=== PATIENT | female | born 1995 | race Caucasian/White ===

== ENCOUNTER 2023-08-01 13:20 | Inpatient (IN) | payer OTHER ==
[2023-08-01 15:03] LABS: BASO % 0.1 % (0-2.0); EOS % 0.1 % (0-4.5); HEMATOCRIT 38.6 % (32.4-45.2); HEMOGLOBIN 12.8 GM/dL (10.7-15.3); LYMPH % 19.3 % (8-40); MCH 28.6 pg (25.7-33.7); MCHC 33.2 g/dl (32.0-36.0); MEAN CELL VOLUME 86.2 fl (80-96); MEAN PLT VOLUME 9.3 fl (7.5-11.1); MONO % 6.8 % (3.8-10.2); NEUT % 73.7 % (42.8-82.8); PLATELET COUNT 184 10^3/uL (134-434); RBC 4.48 M/mm3 (3.60-5.2); RDW 17.7 % (11.6-15.6); WHITE BLOOD COUNT 6.8 K/mm3 (4.0-10.0)
[2023-08-01 15:05] LABS: RETICULOCYTES 2.23 % (0.5-1.5)
[2023-08-01 15:17] LABS: INR 1.01 (0.83-1.09); PROTHROMBIN TIME (PATIENT) 11.7 SEC (9.7-13.0)
[2023-08-01 15:20] LABS: ACTIVATED PTT 23.4 SECONDS (25.2-36.5)
[2023-08-01 15:20] LABS: POTASSIUM 4.2 mmol/L (3.5-5.1)
[2023-08-01 15:21] LABS: CALCIUM 8.9 mg/dL (8.5-10.1)
[2023-08-01 15:23] LABS: BLOOD UREA NITROGEN 5.1 mg/dL (7-18); GAMMA GLUTAMYL TRANSPEPTIDASE 6 U/L (5-85)
[2023-08-01 15:25] LABS: CREATININE 0.6 mg/dL (0.55-1.3)
[2023-08-01 15:26] LABS: SGOT/AST 18 U/L (15-37); SGPT/ALT 22 U/L (13-61)
[2023-08-01] MEDS ORDERED: DINOPROSTONE 10 MG VAGINAL SUPPOSITORY VG ONE (16:30)
[2023-08-01 17:31] VITALS: BMI 30.2
[2023-08-01] MEDS: ELECTROLYTE-148 SOLN 1,000 ML IV SCH (18:15)
[2023-08-01 20:33] LABS: HIV INTERPRETATION NEGATIVE (NEGATIVE)
[2023-08-01] MEDS ORDERED: ZOLPIDEM TARTRATE 5 MG TABLET PO ONE (22:00)
[2023-08-01] MEDS ORDERED: ZOLPIDEM TARTRATE 5 MG TABLET ONE (23:31)
[2023-08-02] MEDS: ELECTROLYTE-148 SOLN 1,000 ML IV SCH ×3 (01:00→17:45)
[2023-08-02] MEDS ORDERED: BUTORPHANOL TARTRATE 2 MG/ML VIAL IVPB ONE (06:00)
[2023-08-02] MEDS ORDERED: PROMETHAZINE HCL 25 MG/1 ML VIAL IVPB ONE (06:00)
[2023-08-02] MEDS ORDERED: BUTORPHANOL TARTRATE 2 MG/ML VIAL ONE (06:04)
[2023-08-02] MEDS ORDERED: PROMETHAZINE HCL 25 MG/1 ML VIAL ONE (06:05)
[2023-08-02] MEDS ORDERED: OXYTOCIN 30 UNITS in 0.9% NS 30 UNIT/500 ML INFUS.BAG IVPB SCH (09:15)
[2023-08-02] MEDS ORDERED: FENTANYL/BUPIVACAINE/NS/PF - PCEA - 50 ML DISP.SYRIN EP ONE ×2 (11:01→16:26)
[2023-08-02] MEDS ORDERED: OXYTOCIN 30 UNITS in 0.9% NS 30 UNIT/500 ML INFUS.BAG IVPB ONE (11:49)
[2023-08-02] MEDS ORDERED: NALOXONE HCL 0.4 MG/ML VIAL IVPUSH PRN (13:01)
[2023-08-02] MEDS ORDERED: FENTANYL/BUPIVACAINE/NS/PF - PCEA - 50 ML DISP.SYRIN EP SCH ×2 (13:15)
[2023-08-02] MEDS ORDERED: ACETAMINOPHEN INJECTION 100 ML IVPB ONE (17:06)
[2023-08-02] MEDS ORDERED: ACETAMINOPHEN 1000 MG/100 ML BAG IVPB ONE (17:15)
[2023-08-02] MEDS ORDERED: OXYTOCIN 20 UNITS in 0.9% NS 20 UNIT/1,000 ML INFUS.BAG IV ONE (18:31)
[2023-08-02] MEDS ORDERED: LIDOCAINE HCL 1% PRESERVATIVE FREE - 30ML VIAL ONE (18:31)
[2023-08-02] MEDS ORDERED: ACETAMINOPHEN 325 MG TABLET (FP) ONE (21:40)
[2023-08-02] MEDS ORDERED: BENZOCAINE 20% 57 GM BOTTLE TP PRN (21:44)
[2023-08-02] MEDS ORDERED: WITCH HAZEL 50% (TUCKS) 40 PAD/JAR PAD TP PRN (21:44)
[2023-08-02] MEDS ORDERED: BENZOCAINE 28 GM HEMORRHOIDAL OINTMENT TP PRN (21:44)
[2023-08-02] MEDS ORDERED: oxyCODONE HCL 5 MG TABLET PO PRN (21:44)
[2023-08-02] MEDS ORDERED: BISACODYL 10 MG SUPP.RECT RC PRN (21:44)
[2023-08-02] MEDS: ACETAMINOPHEN 325 MG TABLET (FP) PO SCH (21:45)
[2023-08-02] MEDS ORDERED: OXYTOCIN 20 UNITS in 0.9% NS 20 UNIT/1,000 ML INFUS.BAG IV SCH (21:45)
[2023-08-02 22:18] LABS: CORD BASE EXCESS -2.6 mmol/L (0-2); CORD HCO3 23.5 mmHg (20-29); CORD PCO2 44.6 mmHg (30-78); CORD pH 7.339 (7.14-7.44)
[2023-08-02 22:23] LABS: CORD BASE EXCESS -0.2 mmol/L (0-2); CORD pH 7.333 (7.14-7.44)
[2023-08-03] MEDS: IBUPROFEN 600 MG TABLET (FP) PO SCH ×5 (01:32→21:25)
[2023-08-03] MEDS: SENNOSIDES/DOCUSATE COMBO (SENNA PLUS) TABLET (UD) PO SCH ×2 (01:32→21:26)
[2023-08-03 01:44] VITALS: RESP 18
[2023-08-03] MEDS: ACETAMINOPHEN 325 MG TABLET (FP) PO SCH ×6 (01:57→22:42)
[2023-08-03 08:16] LABS: BASO % 0.1 % (0-2.0); HEMATOCRIT 35.5 % (32.4-45.2); HEMOGLOBIN 11.2 GM/dL (10.7-15.3); LYMPH % 9.1 % (8-40); MCHC 31.5 g/dl (32.0-36.0); MEAN CELL VOLUME 88.8 fl (80-96); MEAN PLT VOLUME 9.4 fl (7.5-11.1); MONO % 7.3 % (3.8-10.2); NEUT % 83.5 % (42.8-82.8); PLATELET COUNT 143 10^3/uL (134-434); RDW 17.8 % (11.6-15.6); WHITE BLOOD COUNT 12.1 K/mm3 (4.0-10.0)
[2023-08-04] MEDS: ACETAMINOPHEN 325 MG TABLET (FP) PO SCH ×3 (02:39→09:52)
[2023-08-04] MEDS: IBUPROFEN 600 MG TABLET (FP) PO SCH ×2 (04:16→09:52)
[2023-08-04 09:10] VITALS: BP 125/70; PULSE 99; TEMP 98.3
== END 2023-08-04 12:10 | disposition home or self-care (01) | DRG 807 ==
LOC: JLDR 13:20 → J3W 08-03 00:36
PROVIDERS: ADMIT Specialist; ATTEND Specialist
PROC: 10E0XZZ Delivery of Products of Conception, External Approach (ICD-10-PCS; principal; 2023-08-02)
PROC: 0KQM0ZZ Repair Perineum Muscle, Open Approach (ICD-10-PCS; 2023-08-02)
DX: O14.94 Unspecified pre-eclampsia, complicating childbirth (principal); Z37.0 Single live birth; O69.81X0 Labor and delivery complicated by cord around neck, without compression, not applicable or unspecified; O70.1 Second degree perineal laceration during delivery; Z3A.37 37 weeks gestation of pregnancy
CPT/HCPCS: 36415; 36600; 80048; 82803; 82977; 83010; 84450; 84460; 84550; 85025; 85032; 85045; 85610; 85730; 86780; 86850; 86900; 86901; 87389